=== PATIENT | female | born 1955 | race Caucasian/White ===

== ENCOUNTER 2018-02-14 14:14 | Outpatient (CLI) | payer MEDICARE, MEDICAID, SELFPAY ==
--- NOTE | 2018-02-14 14:38 | DI.RAD_ITS ---
SYMPTOMS/DIAGNOSIS: COUGH, PNEUMONIA OF LEFT LOWER LOBE DUE TO INFECTIOUS ORGANISM, R05, J18.1 PA AND LATERAL CHEST: There are no prior comparison exams. The heart size is normal. On the lateral view, there is a triangular area of increased density, which may represent right middle lobe atelectasis. The requisition indicates left lower lobe pneumonia. No left lower lobe abnormality is seen. There are no effusions or evidence of pulmonary edema. Degenerative changes are seen in the spine. IMPRESSION: Right middle lobe atelectasis. Comparison with previous exams may be helpful. Follow-up exam is recommended.
== END 2018-02-14 14:34 ==
PROVIDERS: PCP Family Medicine; Visit Provider Family Medicine
DX: R05 Cough (principal); J98.11 Atelectasis; J18.1 Lobar pneumonia, unspecified organism
CPT/HCPCS: 71046

== ENCOUNTER 2019-06-06 16:09 | Outpatient (REF) | payer MEDICARE, MEDICAID, SELFPAY | END 2019-06-06 16:29 | LOC: LBN 16:09 | PROVIDERS: PCP Family Medicine; Visit Provider Orthopaedic Surgery Sports Medicine | DX: E11.622 Type 2 diabetes mellitus with other skin ulcer (principal); L98.492 Non-pressure chronic ulcer of skin of other sites with fat layer exposed | CPT/HCPCS: 87077; 87070; 87186; 87205 ==

== ENCOUNTER 2019-09-02 15:09 | Outpatient (REF) | payer MEDICARE, MEDICAID, SELFPAY ==
[2019-09-02 16:45] LABS: Abs Immature Grans 0.02 10^3/uL (0.0-0.06); Absolute Basophil Count 0.03 10^3/uL (0.0-0.2); Absolute Lymphocyte Count 1.87 10^3/uL (1.2-3.4); Absolute Monocyte Count 0.45 10^3/uL (0.1-0.8); Absolute Neutrophil Count 4.39 10^3/uL (1.2-6.7); Basophils % 0.4; Eosinophils % 2.9; HCT 33.2 % (36.0-46.0); HGB 10.5 g/dL (11.2-15.7); Immature Grans % 0.3; Lymphocytes % 26.9; MCH 27.3 pg (27.0-33.0); MCHC 31.6 % (32.0-36.0); MCV 86.5 fL (80-95); MPV 10.3 fL (8.0-11.0); Monocytes % 6.5; Platelet Count 360 10^3/uL (130-400); RBC 3.84 10^6/uL (3.93-5.22); RDW-SD 43.9 fL; WBC 6.96 10^3/uL (4.4-10.8)
[2019-09-02 18:22] LABS: ALT 19 U/L (14-59); AST 15 U/L (15-37); Albumin 3.2 g/dL (3.4-5.0); Alkaline Phosphatase 143 U/L (46-116); Anion Gap 7.3 mmol/L (3-11); BUN 14 mg/dL (7-18); Bilirubin, Total 0.3 mg/dL (0.2-1.0); CO2 26.7 mmol/L (21.0-32.0); CREATININE 0.82 mg/dL (0.55-1.02); Calcium 8.9 mg/dL (8.5-10.1); Chloride 102 mmol/L (98-107); Glucose 185 mg/dL (74-106); Potassium 4.7 mmol/L (3.5-5.1); Sodium 136 mmol/L (136-145); TSH (W/Ref FT4) 1.39 uIU/mL (0.36-3.74); Total Protein 6.8 g/dL (6.4-8.2); Vitamin B12 347 pg/mL (193-986)
[2019-09-04 04:55] LABS: Vitamin D 25 Total 9.5 ng/ml (30-100)
== END 2019-09-02 15:29 ==
LOC: LBN 15:09
PROVIDERS: PCP Family Medicine; Visit Provider Nurse Practitioner Family
DX: F32.9 Major depressive disorder, single episode, unspecified (principal)
CPT/HCPCS: 80053; 82306; 82607; 84443; 85025

== ENCOUNTER 2020-01-07 01:29 | Outpatient (CLI) | payer OTHER, MEDICAID, SELFPAY ==
--- NOTE | 2020-01-07 | DI.US_ITS ---
EXAM: US LOWER EXTREMITY VENOUS LT CLINICAL HISTORY: H/O DVT,Z86.718,LT LEG PAIN,M79.605,POINT TENDER MID POST CALF,1/3 UP FROM TECHNIQUE: Left lower extremity venous ultrasound performed using grayscale, color-flow, and spectra l Doppler analysis. COMPARISON: No exams were available for comparison FINDINGS: The left common femoral, femoral and popliteal veins demonstrate normal compressibility, augmentation , and color Doppler. The posterior tibial veins are patent. IMPRESSION: No ultrasound evidence of DVT in the left lower extremity at this time. Edema is noted in the upper calf. DATA REPOSITORY:
== END 2020-01-07 01:49 ==
PROVIDERS: PCP Family Medicine; Visit Provider Family Medicine
DX: Z86.718 Personal history of other venous thrombosis and embolism (principal); M79.605 Pain in left leg
CPT/HCPCS: 93971

== ENCOUNTER 2020-02-25 17:38 | Outpatient (REF) | payer OTHER, SELFPAY | END 2020-02-25 17:58 | LOC: NCHCN 17:38 | PROVIDERS: PCP Family Medicine; Visit Provider Nurse Practitioner Family | DX: A46 Erysipelas (principal) | CPT/HCPCS: 87077; 87070; 87186 ==

== ENCOUNTER 2020-07-22 01:10 | Outpatient (CLI) | payer OTHER, MEDICAID, SELFPAY ==
--- NOTE | 2020-07-22 | DI.US_ITS ---
Exam(s) US LOWER EXTREMITY VENOUS LT EXAM: US LOWER EXTREMITY VENOUS LT CLINICAL HISTORY: SWELLING,M79.89,? DVT TECHNIQUE: Grayscale, color, and doppler imaging of the deep venous system of the left lower extremi ty was performed. COMPARISON: US US LOWER EXTREMITY VENOUS LT from 01/07/2020 FINDINGS: There is no evidence of intraluminal thrombus and there is normal compression and augmentation demons trated within the common femoral vein, femoral vein, and popliteal vein. In the ipsilateral calf the interrogated veins also exhibit normal compression/ augmentation properti es. The ipsilateral saphenofemoral junction is patent. IMPRESSION: 1. No evidence of DVT in the left lower extremity. 2. Some edema was noted in the ankle region. DATA REPOSITORY:
== END 2020-07-22 01:30 ==
PROVIDERS: PCP Family Medicine; Visit Provider Nurse Practitioner Family
DX: R60.0 Localized edema (principal)
CPT/HCPCS: 93971

== ENCOUNTER 2021-06-16 14:16 | Outpatient (REF) | payer MEDICARE, MEDICAID, SELFPAY ==
[2021-06-16 21:11] LABS: HCT 35.9 % (36.0-46.0); HGB 11.4 g/dL (11.2-15.7); MCH 27.3 pg (27.0-33.0); MCHC 31.8 % (32.0-36.0); MCV 86 fL (80-95); MPV 10.2 fL (8.0-11.0); Platelet Count 383 10^3/uL (130-400); RBC 4.18 10^6/uL (3.93-5.22); RDW 13.5 % (11.7-14.6); RDW-SD 42.6 fL
[2021-06-16 21:23] LABS: ALT 25 U/L (14-59); AST 14 U/L (15-37); Albumin 3.7 g/dL (3.4-5.0); Alkaline Phosphatase 180 U/L (46-116); Anion Gap 9.7 mmol/L (3-11); BUN 14 mg/dL (7-18); Bilirubin, Total 0.3 mg/dL (0.2-1.0); CO2 27.3 mmol/L (21.0-32.0); CREATININE 0.7 mg/dL (0.55-1.02); Calculated LDL 69 mg/dL (<100); Chloride 103 mmol/L (98-107); Cholesterol 131 mg/dL (<200); Glucose 105 mg/dL (74-106); HDL Cholesterol 35 mg/dL (40-60); Potassium 4.6 mmol/L (3.5-5.1); Sodium 140 mmol/L (136-145); Total Protein 7.5 g/dL (6.4-8.2); Triglyceride 138 mg/dL (<150)
[2021-06-17 14:31] LABS: GGT 77 U/L (5-55)
== END 2021-06-16 14:17 | disposition home or self-care (01) ==
LOC: NCHCN 14:16
PROVIDERS: Visit Provider Nurse Practitioner Family
DX: E11.9 Type 2 diabetes mellitus without complications (principal); R74.8 Abnormal levels of other serum enzymes
CPT/HCPCS: 80053; 80061; 85027; 82977

== ENCOUNTER 2022-07-07 15:43 | Outpatient (REF) | payer MEDICARE, MEDICAID, SELFPAY ==
[2022-07-07 20:47] LABS: HCT 43.1 % (36.0-46.0); HGB 14.1 g/dL (11.2-15.7); MCH 29.5 pg (27.0-33.0); MCHC 32.7 % (32.0-36.0); MCV 90 fL (80-95); MPV 10.3 fL (8.0-11.0); Platelet Count 305 10^3/uL (130-400); RBC 4.78 10^6/uL (3.93-5.22); RDW 13.8 % (11.7-14.6); RDW-SD 46.2 fL; WBC 9.57 10^3/uL (4.4-10.8)
[2022-07-07 20:56] LABS: ALT 19 U/L (14-59); AST 12 U/L (15-37); Albumin 3.5 g/dL (3.4-5.0); Alkaline Phosphatase 134 U/L (46-116); Anion Gap 6.7 mmol/L (3-11); BUN 17 mg/dL (7-18); Bilirubin, Total 0.6 mg/dL (0.2-1.0); CO2 29.3 mmol/L (21.0-32.0); CREATININE 0.8 mg/dL (0.55-1.02); Calculated LDL 63 mg/dL (<100); Chloride 101 mmol/L (98-107); Cholesterol 128 mg/dL (<200); Estimated GFR 81.72 (mL/min/1.73m2); Glucose 143 mg/dL (74-106); HDL Cholesterol 34 mg/dL (40-60); Potassium 4.8 mmol/L (3.5-5.1); Sodium 137 mmol/L (136-145); Total Protein 7.1 g/dL (6.4-8.2); Triglyceride 158 mg/dL (<150)
== END 2022-07-07 15:44 | disposition home or self-care (01) ==
LOC: NCHCN 15:43
PROVIDERS: Visit Provider Nurse Practitioner Family
DX: I10 Essential (primary) hypertension (principal); E78.2 Mixed hyperlipidemia
CPT/HCPCS: 80053; 80061; 85027